=== PATIENT | female | born 1960 | race African-American/Black ===

== ENCOUNTER 2017-09-20 18:32 | Emergency (ER) | payer OTHER ==
[2017-09-20] MEDS: LIDOCAINE 2% (MDV) 20 ML INJ INJ (19:37)
[2017-09-20] MEDS: HYDROCODONE/APAP (5/325) TAB PO (20:06)
== END 2017-09-20 22:05 | disposition home or self-care (01) ==
LOC: FTE 18:32
DX: S01.121A Laceration with foreign body of right eyelid and periocular area, initial encounter (principal); W01.198A Fall on same level from slipping, tripping and stumbling with subsequent striking against other object, initial encounter; Y92.9 Unspecified place or not applicable
CPT/HCPCS: 12013; 70450; 70486; 99285-25

== ENCOUNTER 2017-09-28 11:02 | Emergency (ER) | payer OTHER | END 2017-09-28 11:31 | disposition home or self-care (01) | LOC: E/R 11:02 | DX: Z48.02 Encounter for removal of sutures (principal) | CPT/HCPCS: 99281; Z7502 ==

== ENCOUNTER 2018-06-04 09:59 | Inpatient (IN) | payer OTHER ==
[~2018-06-04 09:59] MED LIST: SOD CHLORIDE 0.9% 1,000 ML IV
[2018-06-04] MEDS: CLINDAMYCIN 600 MG/D5W (PMX) 50 ML IVPB (11:00)
[2018-06-04] MEDS ORDERED: SOD CHLORIDE 0.9% 1,000 ML IV (11:00)
[2018-06-04 11:31] LABS: ANION GAP 10 (5-13); BLOOD UREA NITROGEN 14 mg/dl (7-20); CALCIUM 9.2 mg/dl (8.4-10.2); CARBON DIOXIDE 27 mmol/L (21-31); CHLORIDE 108 mmol/L (97-110); Estimated GFR > 60 mL/min (>60); GLUCOSE 88 mg/dl (70-220); POTASSIUM 3.5 mmol/L (3.5-5.1)
[2018-06-04 11:45] LABS: SODIUM 145 mmol/L (135-144)
[2018-06-04] MEDS ORDERED: OXYCODONE/ACETAMINOPHEN (5/325) TAB PO (12:30)
[2018-06-04] MEDS ORDERED: HYDROmorphONE 1 MG/5 ML IV SYRINGE IV ×2 (12:30)
[2018-06-04] MEDS ORDERED: LABETALOL HCL 20MG INJ IV (12:30)
[2018-06-04] MEDS ORDERED: DIPHENHYDRAMINE 50 MG INJ IV (12:30)
[2018-06-04] MEDS ORDERED: EPHEDrine SULFATE 50 MG/5 ML SYG IV (12:30)
[2018-06-04] MEDS ORDERED: FENTAnyl 50 MCG/ML VIAL IV ×2 (12:30)
[2018-06-04] MEDS ORDERED: ONDANSETRON 4 MG INJ IV (12:30)
[2018-06-04] MEDS ORDERED: PROPOFOL 20 ML (12:31)
[2018-06-04] MEDS ORDERED: CEFAZOLIN 1 GM INJ (12:31)
[2018-06-04] MEDS ORDERED: ROCURONIUM 50 MG INJ (12:31)
[2018-06-04] MEDS ORDERED: MIDAZOLAM 1 MG/ML 2 ML INJ (12:31)
[2018-06-04] MEDS ORDERED: FENTAnyl 50 MCG/ML VIAL ×2 (12:31→15:13)
[2018-06-04] MEDS ORDERED: ROPIVACAINE 0.2% 20 ML VIAL (12:32)
[2018-06-04] MEDS ORDERED: HYDROCORTISONE 100 MG INJ (12:39)
[2018-06-04] MEDS: BUPIVACAINE 0.25% (MPF) 30 ML INJ (13:35)
[2018-06-04] MEDS ORDERED: DEXAMETHASONE 4 MG/ML 5 ML INJ (14:39)
[2018-06-04] MEDS ORDERED: ONDANSETRON 4 MG INJ (14:39)
[2018-06-04] MEDS ORDERED: METOCLOPRAMIDE 10 MG INJ (14:39)
[2018-06-04] MEDS ORDERED: SUGAMMADEX SODIUM 200 MG/2 ML VIAL IV (15:31)
[2018-06-04] MEDS: METOCLOPRAMIDE 10 MG INJ IV (15:53)
[2018-06-04] MEDS: FENTAnyl 50 MCG/ML VIAL IV ×2 (15:53→17:17)
[2018-06-04] MEDS: MEPERIDINE 25 MG INJ IV (15:58)
[2018-06-04] MEDS ORDERED: morphine 2 MG INJ IV (16:00)
[2018-06-04] MEDS: HYDROmorphONE 1 MG/5 ML IV SYRINGE IV ×2 (16:24→17:54)
[2018-06-04] MEDS: OXYCODONE/ACETAMINOPHEN (5/325) TAB PO (21:14)
[2018-06-04] MEDS: morphine SULFATE/PF (2 MG/2 ML) SYG IV (21:38)
[2018-06-04 21:55] LABS: FLUID AMYLASE 74 U/L; FLUID TYPE ABDOMINAL FLUID
[2018-06-04 21:59] LABS: FLUID TOTAL PROTEIN 7.3 g/dl
[2018-06-04 22:01] LABS: FLD MN% 71.2 %; FLD PMN% 28.8 %; FLD RBC 66000 /uL; FLD WBC 649 /cmm
[2018-06-04 22:08] LABS: FLD TYPE ABDOMINAL
[2018-06-04 22:08] LABS: FLUID TYPE ABDOMINAL FLUID
[2018-06-04 22:09] LABS: FLD CLARITY TURBID
[2018-06-04 22:11] LABS: FLUID LD 7774 U/L
[2018-06-04] MEDS: SOD CHLORIDE 0.9% 1,000 ML IV ×2 (23:41→23:59)
[2018-06-04] MEDS: FAMOTIDINE 20 MG INJ IV (23:41)
[2018-06-04] MEDS: HYDROCORTISONE 100 MG INJ IV (23:41)
[2018-06-05] MEDS: morphine SULFATE/PF (2 MG/2 ML) SYG IV ×5 (01:54→14:03)
[2018-06-05 05:10] LABS: ADD MAN DIFF? NO
[2018-06-05 05:16] LABS: ABNORMAL IP MESSAGE 1; HEMATOCRIT 29.7 % (37.0-47.0); HEMOGLOBIN 9.5 g/dl (12.0-16.0); LYMPHOCYTES # 0.1 10^3/ul (0.8-2.9); LYMPHOCYTES % 2.6 % (15.0-51.0); MEAN CORPUSCULAR HEMOGLOBIN 32.8 pg (29.0-33.0); MEAN CORPUSCULAR VOLUME 102.4 fl (82.0-101.0); MEAN PLATELET VOLUME 12.6 fl (7.4-10.4); MONOCYTE # 0.3 10^3/ul (0.3-0.9); MONOCYTES % 6.6 % (0.0-11.0); NEUTROPHIL # 3.8 10^3/ul (1.6-7.5); NEUTROPHILS % 90.6 % (39.0-77.0); PLATELET COUNT 83 10^3/UL (140-415); RED CELL DISTRIBUTION WIDTH 15.6 % (11.5-14.5)
[2018-06-05 05:16] LABS: WHITE BLOOD COUNT 4.2 10^3/ul (4.8-10.8)
[2018-06-05 05:47] LABS: POSITIVE DIFF @See below
[2018-06-05 05:50] LABS: ALANINE AMINOTRANSFERASE 16 IU/L (13-69); ALBUMIN 3.2 g/dl (3.3-4.9); ALKALINE PHOSPHATASE 60 IU/L (42-121); ANION GAP 7 (5-13); ASPARTATE AMINO TRANSFERASE 38 IU/L (15-46); BILIRUBIN,INDIRECT 0.2 mg/dl (0-1.1); BILIRUBIN,TOTAL 0.2 mg/dl (0.2-1.3); BLOOD UREA NITROGEN 12 mg/dl (7-20); CALCIUM 8.6 mg/dl (8.4-10.2); CARBON DIOXIDE 22 mmol/L (21-31); CHLORIDE 109 mmol/L (97-110); GLUCOSE 141 mg/dl (70-220); POTASSIUM 3.9 mmol/L (3.5-5.1); SODIUM 138 mmol/L (135-144)
[2018-06-05 05:51] LABS: ALBUMIN/GLOBULIN RATIO 0.68; CREATININE 0.54 mg/dl (0.44-1.00); Estimated GFR > 60 mL/min (>60); TOTAL PROTEIN 7.9 g/dl (6.1-8.1)
[2018-06-05] MEDS: PANTOPRAZOLE (EC) 40 MG TAB PO ×2 (06:00→08:41)
[2018-06-05] MEDS: HYDROCORTISONE 100 MG INJ IV (06:10)
[2018-06-05] MEDS: FAMOTIDINE 20 MG INJ IV ×2 (08:42→19:59)
[2018-06-05] MEDS: ASCORBIC ACID 500 MG TAB PO ×2 (09:00)
[2018-06-05] MEDS: FOLIC ACID 1 MG TAB PO (09:00)
[2018-06-05] MEDS: FERROUS SULFATE (EC) 325 MG TAB PO (09:00)
[2018-06-05] MEDS: SOD CHLORIDE 0.9% 1,000 ML IV ×2 (11:34→21:34)
[2018-06-05] MEDS: METOCLOPRAMIDE 10 MG INJ IV ×2 (12:21→19:59)
[2018-06-05] MEDS: predniSONE 2.5 MG TAB PO (17:52)
[2018-06-05] MEDS: morphine 4 MG/ML VIAL IV (20:00)
[2018-06-06] MEDS: METOCLOPRAMIDE 10 MG INJ IV ×2 (03:21→08:29)
[2018-06-06] MEDS: morphine 4 MG/ML VIAL IV (03:22)
[2018-06-06 05:12] LABS: ADD MAN DIFF? NO
[2018-06-06 05:20] LABS: WHITE BLOOD COUNT 4.3 10^3/ul (4.8-10.8)
[2018-06-06 05:20] LABS: ABNORMAL IP MESSAGE 1; HEMATOCRIT 28.4 % (37.0-47.0); HEMOGLOBIN 9.1 g/dl (12.0-16.0); LYMPHOCYTES # 0.2 10^3/ul (0.8-2.9); LYMPHOCYTES % 4.8 % (15.0-51.0); MEAN CORPUSCULAR HEMOGLOBIN 32.7 pg (29.0-33.0); MEAN CORPUSCULAR VOLUME 102.2 fl (82.0-101.0); MEAN PLATELET VOLUME 12.6 fl (7.4-10.4); MONOCYTE # 0.3 10^3/ul (0.3-0.9); MONOCYTES % 6.7 % (0.0-11.0); NEUTROPHIL # 3.8 10^3/ul (1.6-7.5); PLATELET COUNT 86 10^3/UL (140-415); RED BLOOD COUNT 2.78 10^6/ul (4.20-5.40); RED CELL DISTRIBUTION WIDTH 15.9 % (11.5-14.5)
[2018-06-06 05:38] LABS: POSITIVE DIFF @See below
[2018-06-06 05:41] LABS: ALANINE AMINOTRANSFERASE 11 IU/L (13-69); ALBUMIN 3.2 g/dl (3.3-4.9); ALBUMIN/GLOBULIN RATIO 0.68; ALKALINE PHOSPHATASE 59 IU/L (42-121); ANION GAP 7 (5-13); ASPARTATE AMINO TRANSFERASE 35 IU/L (15-46); BILIRUBIN,INDIRECT 0.5 mg/dl (0-1.1); BILIRUBIN,TOTAL 0.5 mg/dl (0.2-1.3); BLOOD UREA NITROGEN 12 mg/dl (7-20); CALCIUM 8.9 mg/dl (8.4-10.2); CARBON DIOXIDE 26 mmol/L (21-31); CHLORIDE 106 mmol/L (97-110); CREATININE 0.68 mg/dl (0.44-1.00); Estimated GFR > 60 mL/min (>60); GLUCOSE 110 mg/dl (70-220); POTASSIUM 3.6 mmol/L (3.5-5.1); SODIUM 139 mmol/L (135-144); TOTAL PROTEIN 7.9 g/dl (6.1-8.1)
[2018-06-06] MEDS: FOLIC ACID 1 MG TAB PO (08:14)
[2018-06-06] MEDS: FAMOTIDINE 20 MG INJ IV ×2 (08:14→23:10)
[2018-06-06] MEDS: predniSONE 2.5 MG TAB PO (08:14)
[2018-06-06] MEDS: FERROUS SULFATE (EC) 325 MG TAB PO (08:14)
[2018-06-06] MEDS: OXYCODONE/ACETAMINOPHEN (5/325) TAB PO ×3 (08:29→23:10)
[2018-06-06] MEDS: ASCORBIC ACID 500 MG TAB PO (10:12)
[2018-06-06] MEDS: DOCUSATE SODIUM 100 MG CAP PO ×2 (13:47→23:10)
[2018-06-07 05:39] LABS: ADD MAN DIFF? NO
[2018-06-07 05:43] LABS: ABNORMAL IP MESSAGE 1; BASOPHILS % 0.3 % (0.0-2.0); HEMATOCRIT 29.2 % (37.0-47.0); HEMOGLOBIN 9.3 g/dl (12.0-16.0); LYMPHOCYTES # 0.2 10^3/ul (0.8-2.9); LYMPHOCYTES % 5.8 % (15.0-51.0); MEAN CORPUSCULAR HEMOGLOBIN 33.1 pg (29.0-33.0); MEAN CORPUSCULAR HGB CONC 31.8 g/dl (32.0-37.0); MEAN CORPUSCULAR VOLUME 103.9 fl (82.0-101.0); MEAN PLATELET VOLUME 11.8 fl (7.4-10.4); MONOCYTE # 0.3 10^3/ul (0.3-0.9); NEUTROPHIL # 3.5 10^3/ul (1.6-7.5); NEUTROPHILS % 86.4 % (39.0-77.0); PLATELET COUNT 84 10^3/UL (140-415); RED BLOOD COUNT 2.81 10^6/ul (4.20-5.40); RED CELL DISTRIBUTION WIDTH 15.5 % (11.5-14.5)
[2018-06-07 05:53] LABS: POSITIVE DIFF @See below
[2018-06-07 06:11] LABS: ANION GAP 6 (5-13); BLOOD UREA NITROGEN 12 mg/dl (7-20); CALCIUM 8.9 mg/dl (8.4-10.2); CARBON DIOXIDE 27 mmol/L (21-31); CHLORIDE 107 mmol/L (97-110); Estimated GFR > 60 mL/min (>60); GLUCOSE 94 mg/dl (70-220); POTASSIUM 3.5 mmol/L (3.5-5.1); SODIUM 140 mmol/L (135-144)
[2018-06-07] MEDS: PANTOPRAZOLE (EC) 40 MG TAB PO (06:45)
[2018-06-07] MEDS: FAMOTIDINE 20 MG INJ IV ×2 (09:00→09:47)
[2018-06-07] MEDS: DOCUSATE SODIUM 100 MG CAP PO ×3 (09:47→20:08)
[2018-06-07] MEDS: ERGOCALCIFEROL 50,000 UNIT CAP PO (09:47)
[2018-06-07] MEDS: FERROUS SULFATE (EC) 325 MG TAB PO (09:47)
[2018-06-07] MEDS: ASCORBIC ACID 500 MG TAB PO (09:48)
[2018-06-07] MEDS: FOLIC ACID 1 MG TAB PO (09:48)
[2018-06-07] MEDS: predniSONE 2.5 MG TAB PO (09:48)
[2018-06-07] MEDS: BISACODYL (EC) 5 MG TAB PO (10:10)
[2018-06-07] MEDS: OXYCODONE/ACETAMINOPHEN (5/325) TAB PO ×2 (20:02→23:59)
[2018-06-08] MEDS: PANTOPRAZOLE (EC) 40 MG TAB PO (06:40)
[2018-06-08] MEDS: FERROUS SULFATE (EC) 325 MG TAB PO (09:06)
[2018-06-08] MEDS: ASCORBIC ACID 500 MG TAB PO (09:06)
[2018-06-08] MEDS: predniSONE 2.5 MG TAB PO (09:06)
[2018-06-08] MEDS: DOCUSATE SODIUM 100 MG CAP PO ×3 (09:06→21:00)
[2018-06-08] MEDS: FOLIC ACID 1 MG TAB PO (09:06)
[2018-06-08] MEDS ORDERED: morphine 4 MG/ML VIAL IV (09:30)
[2018-06-08] MEDS: MAGNESIUM HYDROXIDE 30ML CUP PO (09:47)
[2018-06-08] MEDS: OXYCODONE/ACETAMINOPHEN (5/325) TAB PO (16:39)
[2018-06-08] MEDS: METOCLOPRAMIDE 10 MG INJ IV (21:02)
[2018-06-08] MEDS: METOCLOPRAMIDE 10 MG TAB PO (21:56)
[2018-06-09 05:10] LABS: ADD MAN DIFF? NO
[2018-06-09 05:15] LABS: WHITE BLOOD COUNT 4.9 10^3/ul (4.8-10.8)
[2018-06-09 05:15] LABS: ABNORMAL IP MESSAGE 1; BASOPHILS % 0.2 % (0.0-2.0); EOSINOPHILS % 0.2 % (0.0-7.0); HEMATOCRIT 29.8 % (37.0-47.0); HEMOGLOBIN 9.6 g/dl (12.0-16.0); LYMPHOCYTES # 0.1 10^3/ul (0.8-2.9); LYMPHOCYTES % 1.6 % (15.0-51.0); MEAN CORPUSCULAR HGB CONC 32.2 g/dl (32.0-37.0); MEAN CORPUSCULAR VOLUME 102.4 fl (82.0-101.0); MEAN PLATELET VOLUME 12.2 fl (7.4-10.4); MONOCYTE # 0.4 10^3/ul (0.3-0.9); MONOCYTES % 7.9 % (0.0-11.0); NEUTROPHIL # 4.4 10^3/ul (1.6-7.5); NEUTROPHILS % 89.5 % (39.0-77.0); PLATELET COUNT 121 10^3/UL (140-415); RED BLOOD COUNT 2.91 10^6/ul (4.20-5.40); RED CELL DISTRIBUTION WIDTH 15.5 % (11.5-14.5)
[2018-06-09 05:21] LABS: POSITIVE DIFF @See below
[2018-06-09] MEDS: PANTOPRAZOLE (EC) 40 MG TAB PO (05:25)
[2018-06-09 05:45] LABS: ANION GAP 10 (5-13); BLOOD UREA NITROGEN 11 mg/dl (7-20); CALCIUM 8.4 mg/dl (8.4-10.2); CARBON DIOXIDE 24 mmol/L (21-31); CHLORIDE 103 mmol/L (97-110); CREATININE 0.52 mg/dl (0.44-1.00); Estimated GFR > 60 mL/min (>60); GLUCOSE 108 mg/dl (70-220); POTASSIUM 3.8 mmol/L (3.5-5.1); SODIUM 137 mmol/L (135-144)
[2018-06-09] MEDS: FERROUS SULFATE (EC) 325 MG TAB PO (07:46)
[2018-06-09] MEDS: predniSONE 2.5 MG TAB PO (07:47)
[2018-06-09] MEDS: DOCUSATE SODIUM 100 MG CAP PO ×3 (07:47→21:00)
[2018-06-09] MEDS: ASCORBIC ACID 500 MG TAB PO (07:47)
[2018-06-09] MEDS: FOLIC ACID 1 MG TAB PO (07:47)
[2018-06-09] MEDS: 1/2 NS + KCL 20 MEQ 1,000 ML IV (22:10)
[2018-06-10] MEDS: OXYCODONE/ACETAMINOPHEN (5/325) TAB PO ×2 (00:09→18:14)
[2018-06-10 05:15] LABS: ADD MAN DIFF? NO
[2018-06-10 05:21] LABS: WHITE BLOOD COUNT 2.6 10^3/ul (4.8-10.8)
[2018-06-10 05:21] LABS: HEMOGLOBIN 9.3 g/dl (12.0-16.0); RED BLOOD COUNT 2.86 10^6/ul (4.20-5.40)
[2018-06-10 05:22] LABS: ABNORMAL IP MESSAGE 1; EOSINOPHILS % 0.8 % (0.0-7.0); HEMATOCRIT 29.7 % (37.0-47.0); LYMPHOCYTES # 0.3 10^3/ul (0.8-2.9); LYMPHOCYTES % 9.8 % (15.0-51.0); MEAN CORPUSCULAR HEMOGLOBIN 32.5 pg (29.0-33.0); MEAN CORPUSCULAR HGB CONC 31.3 g/dl (32.0-37.0); MEAN CORPUSCULAR VOLUME 103.8 fl (82.0-101.0); MEAN PLATELET VOLUME 11.6 fl (7.4-10.4); MONOCYTE # 0.3 10^3/ul (0.3-0.9); MONOCYTES % 10.6 % (0.0-11.0); NEUTROPHILS % 78.4 % (39.0-77.0); PLATELET COUNT 127 10^3/UL (140-415); RED CELL DISTRIBUTION WIDTH 15.5 % (11.5-14.5)
[2018-06-10] MEDS: PANTOPRAZOLE (EC) 40 MG TAB PO (05:26)
[2018-06-10 05:28] LABS: POSITIVE DIFF @See below
[2018-06-10] MEDS: 1/2 NS + KCL 20 MEQ 1,000 ML IV ×2 (06:00→09:57)
[2018-06-10 06:21] LABS: ANION GAP 8 (5-13); BLOOD UREA NITROGEN 9 mg/dl (7-20); CALCIUM 8.6 mg/dl (8.4-10.2); CARBON DIOXIDE 27 mmol/L (21-31); CHLORIDE 103 mmol/L (97-110); CREATININE 0.58 mg/dl (0.44-1.00); Estimated GFR > 60 mL/min (>60); GLUCOSE 93 mg/dl (70-220); POTASSIUM 3.7 mmol/L (3.5-5.1); SODIUM 138 mmol/L (135-144)
[2018-06-10] MEDS: FERROUS SULFATE (EC) 325 MG TAB PO (09:51)
[2018-06-10] MEDS: FOLIC ACID 1 MG TAB PO (09:51)
[2018-06-10] MEDS: predniSONE 2.5 MG TAB PO (09:51)
[2018-06-10] MEDS: ASCORBIC ACID 500 MG TAB PO (09:51)
[2018-06-10] MEDS: ACETAMINOPHEN 325 MG TAB PO (16:32)
[2018-06-10] MEDS: METOCLOPRAMIDE 10 MG TAB PO (19:53)
[2018-06-11] MEDS: PANTOPRAZOLE (EC) 40 MG TAB PO (06:34)
[2018-06-11] MEDS: 1/2 NS + KCL 20 MEQ 1,000 ML IV (07:00)
[2018-06-11] MEDS: FERROUS SULFATE (EC) 325 MG TAB PO (09:22)
[2018-06-11] MEDS: predniSONE 2.5 MG TAB PO (09:22)
[2018-06-11] MEDS: ASCORBIC ACID 500 MG TAB PO (09:22)
[2018-06-11] MEDS: FOLIC ACID 1 MG TAB PO (09:22)
[2018-06-11] MEDS: METOCLOPRAMIDE 10 MG TAB PO (09:30)
== END 2018-06-11 15:10 | disposition home health service (06) | DRG 415 ==
LOC: SDS 09:59 → REC 15:43 → MS1 21:02
PROC: 0FT40ZZ Resection of Gallbladder, Open Approach (ICD-10-PCS; principal; 2018-06-04 12:30)
PROC: 0W9G0ZX Drainage of Peritoneal Cavity, Open Approach, Diagnostic (ICD-10-PCS; 2018-06-04 12:30)
PROC: 0DBL0ZX Excision of Transverse Colon, Open Approach, Diagnostic (ICD-10-PCS; 2018-06-04 12:30)
PROC: 0FJ44ZZ Inspection of Gallbladder, Percutaneous Endoscopic Approach (ICD-10-PCS; 2018-06-04 12:30)
DX: K80.10 Calculus of gallbladder with chronic cholecystitis without obstruction (principal); R18.8 Other ascites; D37.4 Neoplasm of uncertain behavior of colon; M06.9 Rheumatoid arthritis, unspecified; Z90.710 Acquired absence of both cervix and uterus; Z98.51 Tubal ligation status
CPT/HCPCS: 80048; 80053; 82042; 82150; 83615; 84157; 85025; 87070; 87075; 87086; 88104; 88107; 88304; 88305; 88313; 88331; 89051; 93005; 97110; 97116; 97162; 97530

== ENCOUNTER 2018-06-18 11:02 | Emergency (ER) | payer OTHER ==
[2018-06-18] MEDS: LIDOCAINE 4% CR TOP (11:49)
== END 2018-06-18 12:30 | disposition home or self-care (01) ==
LOC: FTE 11:02
DX: Z48.02 Encounter for removal of sutures (principal)
CPT/HCPCS: 99281; Z7502